=== PATIENT | female | born 1980 | race Caucasian/White ===

== ENCOUNTER 2017-03-10 05:13 | Day surgery (SDC) | payer BC, OTHER ==
[2017-03-07 14:56] VITALS: BMI 28.5
[2017-03-10] MEDS ORDERED: LIDOCAINE HCL/PF 2% SDV 5ML VIAL ONE (13:56)
[2017-03-10] MEDS ORDERED: DEXAMETHASONE SOD PHOSPHATE 4 MG/1 ML VIAL ONE (13:56)
[2017-03-10] MEDS ORDERED: MIDAZOLAM HCL 2 MG/2 ML SINGLE DOSE VIAL ONE ×2 (13:57)
--- NOTE | 2017-03-10 14:28 | HP ---
Past Medical History - Primary Care Physician PCP:: Martin Hitchcock - Admission Chief Complaint: termination of History of Present Illness: 37 yo f had IUD ,had with iud , sono gestational sac in uterus, iud was removed , requesting termination, risks discussed , ulternatives explained History Source: Patient Limitations to Obtaining History: No Limitations - Past Medical History ...: 2 ...Para: 2 Psych: Yes: Depression - Past Surgical History Hx Myomectomy: No Hx Transabdominal Cerclage: No - Smoking History Smoking history: Current some day smoker Aproximately how many cigarettes per day: 5 - Alcohol/Substance Use Hx Alcohol Use: Yes (occasional) - Social History Usual Living Arrangement: Yes: With Spouse History of Recent Travel: No Home Medications - Allergies Allergies/Adverse Reactions: Allergies Allergy/AdvReac Type Severity Reaction Status Date / Time No Known Allergies Allergy Verified 03/10/17 13:17 - Home Medications Home Medications: Ambulatory Orders Paroxetine HCl [Paxil] 40 mg PO DAILY 03/07/17 Ustekinumab [Stelara] 45 mg SQ ASDIR 03/07/17 Review of Systems - Review of Systems Constitutional: reports: Loss of Appetite, Weakness Eyes: reports: No Symptoms HENT: reports: No Symptoms Neck: reports: No Symptoms Cardiovascular: reports: No Symptoms Respiratory: reports: No Symptoms Gastrointestinal: reports: No Symptoms Genitourinary: reports: No Symptoms Breasts: reports: No Symptoms Reported Musculoskeletal: reports: No Symptoms Integumentary: reports: No Symptoms Neurological: reports: No Symptoms Endocrine: reports: No Symptoms Hematology/Lymphatic: reports: No Symptoms Psychiatric: reports: No Symptoms 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 Vital Signs: Vital Signs Temperature 98.4 F 03/10/17 13:18 Pulse Rate 64 03/10/17 13:18 Respiratory Rate 16 03/10/17 13:18 Blood Pressure 133/69 03/10/17 13:18 O2 Sat by Pulse Oximetry (%) 99 03/10/17 13:18 Constitutional: Yes: Well Nourished, No Distress, Calm Eyes: Yes: WNL, Conjunctiva Clear, EOM Intact HENT: Yes: WNL, Atraumatic, Normocephalic Neck: Yes: WNL, Supple, Trachea Midline Cardiovascular: Yes: WNL, Regular Rate and Rhythm Respiratory: Yes: WNL, Regular, CTA Bilaterally Gastrointestinal: Yes: WNL ...Rectal Exam: Yes: WNL Renal/: Yes: WNL Cervix: Yes: Normal Uterus: Yes: Freely Moveable, Soft, Other (6 weeks size) Adnexa: Normal: Left, Right Breast(s): Yes: WNL Musculoskeletal: Yes: WNL Extremities: Yes: WNL Edema: No Integumentary: Yes: WNL Neurological: Yes: WNL, Alert, Oriented ...Motor Strength: WNL Psychiatric: Yes: WNL, Alert, Oriented Problem List - Problem (1) Intrauterine device (IUD) contraceptive failure resulting in Code(s): O99.89 - OTH DISEASES AND CONDITIONS COMPL PREG/CHLDBRTH; T83.31XA - BREAKDOWN (MECHANICAL) OF INTRAUTERINE CONTRACEP DEV, INIT Assessment/Plan suction D&C , rba explained
[2017-03-10] MEDS ORDERED: ceFAZolin SODIUM 1 GM VIAL IVPB ONE (14:32)
[2017-03-10] MEDS ORDERED: ceFAZolin SODIUM 1 GM VIAL ONE (14:33)
[2017-03-10] MEDS ORDERED: ONDANSETRON 4 MG/2 ML VIAL IVPUSH PRN ×2 (14:39→14:46)
[2017-03-10] MEDS ORDERED: IBUPROFEN 800 MG/8 ML IJ IVPB PRN (14:39)
[2017-03-10] MEDS ORDERED: oxyCODONE HCL 5 MG TABLET PO PRN ×2 (14:39→14:46)
[2017-03-10] MEDS ORDERED: IBUPROFEN 600 MG TABLET (FP) PO PRN (14:39)
[2017-03-10] MEDS ORDERED: ELECTROLYTE-148 SOLN 1,000 ML IV SCH (14:45)
[2017-03-10] MEDS ORDERED: PROMETHAZINE HCL 25 MG/1 ML VIAL IVPUSH PRN (14:46)
[2017-03-10] MEDS ORDERED: LACTATED RINGERS SOLUTION 1,000 ML IV SCH (15:00)
[2017-03-10] MEDS ORDERED: oxyCODONE HCL 5 MG TABLET ONE (15:47)
[2017-03-10 17:44] VITALS: BP 116/56; PULSE 69
[2017-03-10 18:32] VITALS: TEMP 98
--- NOTE | 2017-03-10 21:05 | OP ---
DATE OF OPERATION: 03/10/2017 PREOPERATIVE DIAGNOSIS: with intrauterine device for termination of . POSTOPERATIVE DIAGNOSIS: with intrauterine device for termination of . PROCEDURE: Suction curettage. SURGEON: Martin Almonte M.D. ANESTHESIA: General. ANESTHESIOLOGIST: Delmer Salguero M.D. ESTIMATED BLOOD LOSS: 100 mL. OPERATION: Patient was taken to the operating room where adequate general anesthesia. Examination under anesthesia revealed external genitalia to be normal, vagina was normal, cervix was closed, no lesion, no bleeding. Uterus was 6 weeks size, soft, and no masses were palpable. Adnexa no masses were palpable. Then with a weighted speculum in the vagina, anterior lip of cervix was grasped single loop tenaculum. Cervix was gradually dilated with Hegar dilator and then suction curet was inserted in the uterine cavity and the contents were suctioned. Patient tolerated procedure well, left the OR in good condition. MARTIN ALMONTE M.D. [id number]
--- NOTE | 2017-03-12 15:51 | PATH ---
Surgical Pathology Report Patient Name: CECILIA EVERETT [facility]. Rec. #: [id number] /Age/Gender: 1980 (Age: 37) / F Account: [id number] Location: [facility] SURGICAL Taken: 03/10/2017 Received: 03/11/2017 Reported: 03/12/2017 Physicians: Martin Hitchcock M.D. Specimen(s) Received PRODUCTS OF CONCEPTION Clinical History Voluntary sterilization Final Diagnosis UTERINE CONTENTS, CURETTINGS: CHORIONIC VILLI CONSISTENT WITH PRODUCTS OF CONCEPTION, ALONG WITH DECIDUA AND HYPERSECRETORY ENDOMETRIUM. Electronically Signed Jaime Brooks M.D. Gross Description Received in formalin labeled "contents of conception," is a 6.2 x 6.0 x 0.8 cm aggregate of adame soft tissue fragments. No definite villous tissue or somatic tissue is identified. Absorber Operator sections are submitted in 3 cassettes. /03/11/2017 saudi03/11/2017
== END 2017-03-10 17:15 | disposition home or self-care (01) ==
LOC: JASU-SURG 05:13
PROVIDERS: ATTEND Obstetrics & Gynecology
PROC: 10A07Z6 Abortion of Products of Conception, Vacuum, Via Natural or Artificial Opening (ICD-10-PCS; principal; 2017-03-10 14:30)
DX: Z33.2 Encounter for elective termination of pregnancy (principal)
CPT/HCPCS: 88305-TC; 94760

== ENCOUNTER 2017-03-28 06:16 | Day surgery (SDC) | payer BC, OTHER ==
[2017-03-27 11:14] VITALS: BMI 27.4
--- NOTE | 2017-03-28 07:20 | HP ---
Past Medical History - Primary Care Physician PCP:: Martin Hitchcock - Admission Chief Complaint: sterlization History of Present Illness: 37 yo f with 2 previous c/s request of tubal ligation, risks o infection, bleeding, injury to surrounding tissue bowel , bladder , vesseles, post op complication, ectopic , discussed , ulternatives explained History Source: Patient Limitations to Obtaining History: No Limitations - Past Medical History ...: 2 ...Para: 2 Psych: Yes: Depression - Past Surgical History Past Surgical History: Yes: Hx Myomectomy: No Hx Transabdominal Cerclage: No - Smoking History Smoking history: Current some day smoker Have you smoked in the past 12 months: Yes Aproximately how many cigarettes per day: 10 - Alcohol/Substance Use Hx Alcohol Use: Yes (jose luissocial) - Social History Usual Living Arrangement: Yes: With Significant Other History of Recent Travel: No Home Medications - Allergies Allergies/Adverse Reactions: Allergies Allergy/AdvReac Type Severity Reaction Status Date / Time No Known Allergies Allergy Verified 03/28/17 06:56 - Home Medications Home Medications: Ambulatory Orders Paroxetine HCl [Paxil] 40 mg PO DAILY 03/07/17 Ustekinumab [Stelara] 45 mg SQ ASDIR 03/07/17 Review of Systems - Review of Systems Constitutional: reports: No Symptoms Eyes: reports: No Symptoms HENT: reports: No Symptoms Neck: reports: No Symptoms Cardiovascular: reports: No Symptoms Respiratory: reports: No Symptoms Gastrointestinal: reports: No Symptoms Genitourinary: reports: No Symptoms Breasts: reports: No Symptoms Reported Musculoskeletal: reports: No Symptoms Integumentary: reports: No Symptoms Neurological: reports: No Symptoms Endocrine: reports: No Symptoms Psychiatric: reports: No Symptoms Physical Exam-STREET VENDOR Vital Signs: Vital Signs Temperature 98.0 F 03/28/17 06:56 Pulse Rate 71 03/28/17 06:56 Respiratory Rate 20 03/28/17 06:56 Blood Pressure 118/72 03/28/17 06:56 O2 Sat by Pulse Oximetry (%) 97 03/28/17 06:51 Constitutional: Yes: Well Nourished, No Distress, Calm Eyes: Yes: WNL, Conjunctiva Clear, EOM Intact HENT: Yes: WNL, Atraumatic, Normocephalic Neck: Yes: WNL, Supple, Trachea Midline Cardiovascular: Yes: WNL, Regular Rate and Rhythm Respiratory: Yes: WNL, Regular, CTA Bilaterally Gastrointestinal: Yes: WNL ...Rectal Exam: Yes: WNL Renal/: Yes: WNL External Genitalia: Yes: Normal Vaginal Exam: Yes: Normal Cervix: Yes: Normal Uterus: Yes: Normal Adnexa: Not Palpable: Left, Right Breast(s): Yes: WNL Musculoskeletal: Yes: WNL Extremities: Yes: WNL Edema: No Integumentary: Yes: WNL Neurological: Yes: WNL, Alert, Oriented ...Motor Strength: WNL Psychiatric: Yes: WNL, Alert, Oriented Problem List - Problem (1) Sterilization Code(s): Z30.2 - ENCOUNTER FOR STERILIZATION Assessment/Plan admit for laparoscopy tubal ligation , possible salpingectomy
[2017-03-28] MEDS ORDERED: MIDAZOLAM HCL 2 MG/2 ML SINGLE DOSE VIAL ONE (07:37)
[2017-03-28] MEDS ORDERED: ROCURONIUM BROMIDE 50 MG/5 ML VIAL ONE (07:39)
[2017-03-28] MEDS ORDERED: PROPOFOL 20 ML ONE ×2 (07:39)
[2017-03-28] MEDS ORDERED: SUCCINYLCHOLINE CHLORIDE 200 MG/10 ML VIAL ONE (07:39)
[2017-03-28] MEDS ORDERED: oxyCODONE HCL 5 MG TABLET PO PRN (07:42)
[2017-03-28] MEDS ORDERED: ONDANSETRON 4 MG/2 ML VIAL IVPUSH PRN (07:42)
[2017-03-28] MEDS ORDERED: LACTATED RINGERS SOLUTION 1,000 ML IV SCH (07:45)
[2017-03-28] MEDS ORDERED: LIDOCAINE HCL 2% JELLY (5 ML/TUBE) ONE (07:53)
[2017-03-28] MEDS ORDERED: DEXAMETHASONE SOD PHOSPHATE 4 MG/1 ML VIAL ONE (07:53)
[2017-03-28] MEDS ORDERED: LIDOCAINE HCL/PF 2% SDV 5ML VIAL ONE (07:53)
[2017-03-28] MEDS ORDERED: KETOROLAC TROMETHAMINE 30 MG/1 ML VIAL ONE (07:53)
[2017-03-28] MEDS ORDERED: oxyCODONE HCL 5 MG TABLET ONE (10:34)
[2017-03-28 12:01] VITALS: BP 129/69; PULSE 73
[2017-03-28 12:53] VITALS: TEMP 98
--- NOTE | 2017-03-28 22:10 | OP ---
DATE OF OPERATION: 03/28/2017 PREOPERATIVE DIAGNOSIS: Voluntary sterilization. POSTOPERATIVE DIAGNOSIS: Voluntary sterilization. PROCEDURE: Laparoscopic bilateral salpingectomy. SURGEON: Martin Hitchcock MD ANESTHESIA: General. ANESTHESIOLOGIST: Marian Watt MD ESTIMATED BLOOD LOSS: 25 mL DESCRIPTION OF OPERATIVE PROCEDURE: Patient was taken to the operating room. Under adequate general anesthesia in dorsal lithotomy position, examination under anesthesia revealed external genitalia to be normal. Vagina was normal. Cervix was clean. No lesion. Uterus: Normal size. Adnexa: No masses were palpable. Then, with a weighted speculum in the vagina, anterior lip of the cervix was grasped with a single-tooth tenaculum, and then, Hulka was introduced into the uterine cavity and Merlos inserted. Patient was prepped and draped for the pelviscopy. A small infraumbilical skin incision was made. Veress needle was introduced. Then, the scope was introduced. Under direct vision, a 5-mm trocar was introduced through the suprapubic area, and then, examination of the upper abdomen showed it to be normal. Uterus normal size. Both tubes and ovaries were normal. Then, the right tube was grasped with a LigaSure cautery and cauterized along the mesosalpinx, and the right tube was removed and placed in the cul-de-sac. Then, the same procedure repeated for the left tube with the LigaSure. The left tube also was removed entirely. Then, the specimen was removed from the port. No active bleeding was seen. Then, the abdomen was emptied of all the gases. Suprapubic and infraumbilical skin incisions were closed with interrupted sutures of 0 Biosyn, and the skin was closed with Dermabond glue. The patient tolerated the procedure well, left the OR in good condition. Clive [id number]
--- NOTE | 2017-03-31 11:35 | PATH ---
Surgical Pathology Report Patient Name: CECILIA EVERETT [facility]. Rec. #: [id number] /Age/Gender: 1980 (Age: 37) / F Account: [id number] Location: [facility] SURGICAL Taken: 03/28/2017 Received: 03/28/2017 Reported: 03/31/2017 Physicians: Martin Hitchcock M.D. Specimen(s) Received BILATERAL FALLOPIAN TUBES Clinical History History of C-sections Final Diagnosis BILATERAL FALLOPIAN TUBES, SALPINGECTOMY: BENIGN BILATERAL FALLOPIAN TUBES, INCLUDING FIMBRIATED ENDS. Electronically Signed Jaime Brooks M.D. Gross Description Received in formalin labeled "bilateral fallopian tubes," are 2 portions of undesignated, fimbriated fallopian tube measuring 3.5 and 3.4 cm in length. The outer surfaces are adame-jung with fibrous adhesions. Sectioning reveals unremarkable lumens. Playback Operator sections are submitted in 4 cassettes as follows: 1-arbitrarily designated fallopian tube 1 fimbria; 4-[id number] of fallopian tube 1; 3-arbitrarily designated fallopian tube 2 fimbria; 5-[id number] of fallopian tube 2. /03/28/2017 saudi03/28/2017
== END 2017-03-28 12:00 | disposition home or self-care (01) ==
LOC: JASU-SURG 06:16
PROVIDERS: ATTEND Obstetrics & Gynecology
PROC: 0UB74ZZ Excision of Bilateral Fallopian Tubes, Percutaneous Endoscopic Approach (ICD-10-PCS; principal; 2017-03-28 07:30)
DX: Z30.2 Encounter for sterilization (principal)
CPT/HCPCS: 84703; 88302-TC; 94760